=== PATIENT | male | born 1980 | race Caucasian/White ===

== ENCOUNTER → 2020-06-14 14:45 | Outpatient (CLI) | payer BC, OTHER, SELFPAY ==
--- NOTE | ~2020-06-14 | XR_ITS ---
EXAMINATION: XR lumbar spine 2-3V DATE: 06/14/2020 15:06 INDICATION: Lateral low back pain, right greater than left. TECHNIQUE: Anteroposterior and lateral views of the lumbar spine, and cone-down lateral view of the l umbosacral junction were obtained. COMPARISON: None. FINDINGS: 3 mm retrolisthesis L5 on S1. Alignment is otherwise normal. Vertebral body heights are normal. Very mild disc height loss at L4-L5. Remaining disc heights are normal. Minimal bilateral sacroiliac osteo arthritis. Visualized portions of the lung bases are clear. IMPRESSION: 1. Mild lower lumbar spondylosis with 3 mm retrolisthesis L5 on S1. Reviewed, dictated and finalized at location A. OPERATOR
== END ==
PROVIDERS: PCP Internal Medicine; Visit Provider Nurse Practitioner
DX: M47.896 Other spondylosis, lumbar region (principal)
CPT/HCPCS: 72100

== ENCOUNTER → 2020-07-06 14:54 | Outpatient (CLI) | payer BC, SELFPAY ==
--- NOTE | ~2020-07-06 | XR_ITS ---
EXAMINATION: XR foot LT min 3V EXAM DATE: 07/06/2020 15:12 INDICATION: No known recent injury provided at this time. Pain of the left foot. TECHNIQUE: Left foot dorsoplantar, lateral and oblique projections obtained and reviewed. There is n o prior study for comparison. FINDINGS: Left metatarsal bones unremarkable. No periosteal reaction or band of sclerosis to sugges t subacute stress fracture. There are no bony erosions identified. There are no acute fractures or di slocations identified. There is no subcutaneous gas. The soft tissue is unremarkable. There are n o radiopaque foreign bodies. IMPRESSION: 1. Unremarkable XR foot LT min 3V exam. Reviewed, dictated and finalized at location B. R FABRICATION OPERATOR
== END ==
PROVIDERS: PCP Internal Medicine; Visit Provider Internal Medicine
DX: M79.672 Pain in left foot (principal)
CPT/HCPCS: 73630